=== PATIENT | female | born 1965 | race Caucasian/White ===

== ENCOUNTER → 2016-12-29 | Outpatient (CLI) | payer BC ==
[~2016-12-29] MED LIST: CEPHALEXIN500 M1 PO
== END ==
LOC: MC.RAD 13:51
DX: Z12.31 Encounter for screening mammogram for malignant neoplasm of breast (principal); R92.2 Inconclusive mammogram

== ENCOUNTER → 2017-01-02 | Outpatient (CLI) | payer BC | LOC: MC.RAD 13:00 | DX: N63 Unspecified lump in breast (principal); D24.1 Benign neoplasm of right breast ==

== ENCOUNTER → 2017-01-26 | Outpatient (CLI) | payer BC ==
[2017-01-30 16:26] LABS: URINE 24 HOUR CALCIUM 228 mg/24 hr (100-300); URINE 24 HOUR SODIUM 232 mmol/24h (40-220); URINE COLLECTION TIME 24 HOURS
[2017-01-30 16:27] LABS: URINE 24 HOUR CREATININE 1.7 gm/24 hr (0.8-1.8)
== END ==
LOC: COL.LAB 13:25
PROVIDERS: Urology
DX: Z01.89 Encounter for other specified special examinations (principal)

== ENCOUNTER → 2017-02-08 | Outpatient (CLI) | payer BC | LOC: COL.RAD 10:17 | DX: N13.39 Other hydronephrosis (principal); R80.8 Other proteinuria | CPT/HCPCS: Q9967 ==

== ENCOUNTER → 2017-02-27 | Outpatient (CLI) | payer BC | LOC: COL.RAD 09:07 | DX: N13.0 Hydronephrosis with ureteropelvic junction obstruction (principal); R33.9 Retention of urine, unspecified; N32.3 Diverticulum of bladder | CPT/HCPCS: Q9967 ==

== ENCOUNTER 2017-05-02 11:14 | Emergency (ER) | payer BC ==
[~2017-05-02] VITALS: Ht 152.4 cm; Wt 90.9 kg
[2017-05-02 11:18] VITALS: BP 173/84; TEMP 98.9
[2017-05-02] MEDS ORDERED: CEPHALEXIN500 M1 PO (12:37)
[2017-05-02 12:54] VITALS: PULSE 97
== END 2017-05-02 12:55 | disposition home or self-care (01) ==
LOC: COL.ER 11:14
DX: L03.115 Cellulitis of right lower limb (principal); F17.210 Nicotine dependence, cigarettes, uncomplicated; F12.99 Cannabis use, unspecified with unspecified cannabis-induced disorder

== ENCOUNTER 2017-10-12 14:16 | Emergency (ER) | payer BC ==
[~2017-10-12] VITALS: Ht 152.4 cm; Wt 100.0 kg
[2017-10-12 14:19] VITALS: BP 154/81; TEMP 99.4
[2017-10-12] MEDS ORDERED: NORCO 325 MG-7.1 TAB PO (14:25)
[2017-10-12] MEDS ORDERED: CLEOCIN HC150 MG/CAP PO (14:25)
[2017-10-12 16:35] LABS: BASO # 0.1 (0.0-0.2); BASO % 0.7 % (0.0-2.0); EOS # 0.1 (0.0-0.7); EOS % 0.5 % (0-4.0); GRAN # 7.1 (1.4-6.5); GRAN % 64.6 % (42.2-75.2); HEMATOCRIT 45.7 % (37.0-47.0); HEMOGLOBIN 15.4 g/dl (12.5-16.0); LYMPH # 2.8 (1.2-3.4); LYMPH % 25.6 % (20.0-51.0); MEAN CELL VOLUME 90 fl (80.0-100.0); MEAN CORPUSCULAR HEMOGLOBIN 30 pg (27.0-31.0); MEAN CORPUSCULAR HGB CONC 34 g/dl (33.0-37.0); MEAN PLATELET VOLUME 9.9 fl (7.4-10.4); MONO # 0.9 (0.1-0.6); MONO % 8.2 % (1.7-9.3); PLATELET COUNT 267 K/mm3 (130-400); RED BLOOD COUNT 5.07 M/mm3 (4.10-5.30)
[2017-10-12 16:48] LABS: ADJUSTED CALCIUM 9.6 mg/dL (8.4-10.2); ALBUMIN 4.6 gm/dL (3.5-5.0); BILIRUBIN,TOTAL 1.1 mg/dL (0.0-1.0); C-REACTIVE PROTEIN 6.2 mg/dL (0.0-0.9); CALCIUM 10.1 mg/dL (8.4-10.2); CREATININE, serum 0.93 mg/dL (0.52-1.25); POTASSIUM 4.2 mmol/L (3.4-5.0); TOTAL PROTEIN 8.1 gm/dL (6.4-8.2)
[2017-10-12] MEDS ORDERED: AMOXICILLIN 8751 TAB PO (19:10)
[2017-10-12 19:24] VITALS: PULSE 91
== END 2017-10-12 19:25 | disposition home or self-care (01) ==
LOC: COL.ER 14:16
PROVIDERS: Emergency Medicine
DX: R22.0 Localized swelling, mass and lump, head (principal)
CPT/HCPCS: J1200; J7030; Q9967